=== PATIENT | female | born 1985 | race Caucasian/White ===

== ENCOUNTER → 2017-11-10 | Outpatient (REF) | payer BC | LOC: M LAB REF 12:37 | DX: N39.0 Urinary tract infection, site not specified (principal) | CPT/HCPCS: 87186 ==

== ENCOUNTER → 2019-03-12 | Outpatient (REF) | payer BC, MEDICAID, SELFPAY | LOC: M SFHCADAM 16:22 | PROVIDERS: ATTEND Physician Assistant Medical | DX: R19.7 Diarrhea, unspecified (principal) ==

== ENCOUNTER 2020-02-11 12:31 | Emergency (ER) | payer MEDICAID ==
[~2020-02-11] VITALS: Ht 157.5 cm; Wt 51.9 kg
[2020-02-11 12:31] VITALS: BP 103/67
[2020-02-11] MEDS ORDERED: CITA40TA4 (12:51)
[2020-02-11 15:25] LABS: BASO % 0.6 % (0.0-1.0); EOS # 0.1 10^3/uL (0.0-0.5); HEMATOCRIT 42.7 % (36.0-47.0); HEMOGLOBIN 14.4 g/dl (12.0-15.5); LYMPH # 1.7 10^3/uL (1.5-5.0); LYMPH % 23.8 % (24.0-44.0); MEAN CORPUSCULAR HEMOGLOBIN 31.5 pg (27.0-33.0); MEAN CORPUSCULAR HGB CONC 33.7 g/dl (32.0-36.5); MEAN CORPUSCULAR VOLUME 93.4 fl (80.0-96.0); MONO # 0.6 10^3/uL (0.0-0.8); MONO % 8.9 % (0.0-5.0); NEUTROPHILS # 4.5 10^3/uL (1.5-8.5); NEUTROPHILS % 65.4 % (36.0-66.0); PLATELET COUNT, AUTOMATED 237 10^3/uL (150-450); RED BLOOD COUNT 4.57 10^6/uL (4.00-5.40); WHITE BLOOD COUNT 6.9 10^3/uL (4.0-10.0)
[2020-02-11 15:49] LABS: ALBUMIN 4.2 GM/DL (3.2-5.2); ALT/SGPT 14 U/L (12-78); BILIRUBIN,DIRECT 0.2 MG/DL (0.0-0.2); BILIRUBIN,TOTAL 0.6 MG/DL (0.2-1.0); BLOOD UREA NITROGEN 12 MG/DL (7-18); CALCIUM LEVEL 9.1 MG/DL (8.5-10.1); CARBON DIOXIDE LEVEL 30 MEQ/L (21-32); CHLORIDE LEVEL 104 MEQ/L (98-107); CREATININE FOR GFR 0.67 MG/DL (0.55-1.30); GLOMERULAR FILTRATION RATE > 60.0 (>60); GLUCOSE, FASTING 84 MG/DL (70-100); LIPASE 127 U/L (73-393); POTASSIUM SERUM 4.2 MEQ/L (3.5-5.1); SODIUM LEVEL 139 MEQ/L (136-145); TOTAL PROTEIN 7.2 GM/DL (6.4-8.2)
== END 2020-02-11 16:16 | disposition home or self-care (01) ==
LOC: M ED 12:31
DX: R19.7 Diarrhea, unspecified (principal); R51.9 Headache, unspecified; R11.0 Nausea; Z87.19 Personal history of other diseases of the digestive system; Z79.899 Other long term (current) drug therapy
CPT/HCPCS: 36415; 80048; 80076; 83690; 85025; 99283; U0003

== ENCOUNTER → 2020-05-28 | Outpatient (CLI) | payer OTHER ==
[~2020-05-28] MED LIST: CITA40TA4
--- NOTE | 2020-05-28 19:00 | REP ---
INDICATION: L TOE INJURY. COMPARISON: None. TECHNIQUE: Four views of the left 5th toe are provided. FINDINGS: Four views of the left 5th toe demonstrate a transversely oriented acute nondisplaced fracture through the base of the proximal phalanx with associated soft tissue swelling.. Also noted is a previously placed screw plate fixation device in the 5th metatarsal. No other fracture is seen.. . IMPRESSION: Acute fracture nondisplaced proximal and of the proximal phalanx of the 5th toe. Old screw plate fixation device 5th metatarsal.. <Electronically signed by Koby Miner > 05/28/20 [id number]
== END ==
LOC: M RAD 18:11
PROVIDERS: ATTEND Physician Assistant Medical
DX: S90.932A Unspecified superficial injury of left great toe, initial encounter (principal); W18.30XA Fall on same level, unspecified, initial encounter; Y92.009 Unspecified place in unspecified non-institutional (private) residence as the place of occurrence of the external cause

== ENCOUNTER → 2020-10-01 | Outpatient (REF) | payer OTHER ==
[2020-10-01 17:09] LABS: APPEARANCE, URINE HAZY (CLEAR); BACTERIA, URINE AUTO 1+ (NEGATIVE); BILIRUBIN, URINE AUTO NEGATIVE (NEGATIVE); BLOOD, URINE BLOOD 1+ (NEGATIVE); COLOR, URINE YELLOW (YELLOW); GLUCOSE, URINE (UA) AUTO NEGATIVE (NEGATIVE); KETONE, URINE AUTO NEGATIVE (NEGATIVE); LEUKOCYTE ESTERASE, URINE AUTO 1+ (NEGATIVE); MUCUS, URINE SMALL (NEGATIVE); NITRITE, URINE AUTO POSITIVE (NEGATIVE); PROTEIN, URINE AUTO NEGATIVE (NEGATIVE); RBC, URINE AUTO 1 /HPF (0-3); SPECIFIC GRAVITY URINE AUTO 1.004 (1.002-1.035); SQUAMOUS EPITHELIAL CELL UR AU 2 /HPF (0-6); UROBILINOGEN, URINE AUTO 0.2 mg/dL (0.0-2.0); WBC, URINE AUTO 17 /HPF (0-3)
== END ==
LOC: M LAB REF 16:47
PROVIDERS: ATTEND Physician Assistant
DX: N39.0 Urinary tract infection, site not specified (principal)

== ENCOUNTER 2024-03-01 12:32 | Emergency (ER) | payer OTHER, SELFPAY ==
[~2024-03-01] VITALS: Ht 157.5 cm; Wt 50.4 kg
[~2024-03-01 12:32] MED LIST changes: -CITA40TA4; +CITA40TA7
[2024-03-01 13:14] LABS: BASO # 0.1 10^3/uL (0.0-0.2); BASO % 0.8 % (0.0-1.0); EOS # 0.1 10^3/uL (0.0-0.5); EOS % 0.8 % (0.0-3.0); HEMATOCRIT 42.6 % (36.0-47.0); LYMPH # 1.2 10^3/uL (1.5-5.0); LYMPH % 19.5 % (24.0-44.0); MEAN CORPUSCULAR HGB CONC 35.2 g/dl (32.0-36.5); MEAN CORPUSCULAR VOLUME 93.8 fl (80.0-96.0); MONO # 0.5 10^3/uL (0.0-0.8); MONO % 7.5 % (2.0-8.0); NEUTROPHILS # 4.3 10^3/uL (1.5-8.5); NEUTROPHILS % 71.2 % (36.0-66.0); PLATELET COUNT, AUTOMATED 245 10^3/uL (150-450); RED BLOOD COUNT 4.54 10^6/uL (4.00-5.40)
[2024-03-01 13:43] LABS: CPK CREATINE PHOSPHOKINASE 69 U/L (34-145)
[2024-03-01 13:44] LABS: ALBUMIN 4.4 G/DL (3.2-5.2); ALKALINE PHOSPHATASE 70 U/L (35-104); ALT/SGPT 13 U/L (7.0-40); AST/SGOT 10 U/L (<34); BILIRUBIN,DIRECT 0.2 MG/DL (<0.4); BILIRUBIN,TOTAL 0.6 MG/DL (0.3-1.2); BLOOD UREA NITROGEN 10 MG/DL (9-23); CALCIUM LEVEL 9.1 MG/DL (8.5-10.1); CARBON DIOXIDE LEVEL 26 MMOL/L (20-31); CHLORIDE LEVEL 106 MMOL/L (98-107); CK-MB VALUE MASS < 1.0 NG/ML (<3.6); CREATININE FOR GFR 0.72 MG/DL (0.55-1.30); GLOMERULAR FILTRATION RATE > 60.0 (>60); GLUCOSE, FASTING 106 MG/DL (60-100); MB/CK RELATIVE INDEX 1.44 (< OR =4); SODIUM LEVEL 140 MMOL/L (136-145); TOTAL PROTEIN 7.2 G/DL (5.7-8.2)
[2024-03-01 13:46] LABS: KETONE, URINE AUTO RFX NEGATIVE (NEGATIVE); LEUKOCYTE ESTERASE UR AUTO RFX NEGATIVE (NEGATIVE); MUCUS, URINE RFX SMALL (NEGATIVE); NITRITE, URINE AUTO RFX NEGATIVE (NEGATIVE); RBC, URINE AUTO RFX 2 /HPF (0-3); SQUAM EPITHELIAL CELL UR AURFX 2 /HPF (0-6); WBC, URINE AUTO RFX 0 /HPF (0-3)
[2024-03-01 13:48] LABS: THYROID STIMULATING HORMONE 1.693 uIU/ML (0.55-4.78)
[2024-03-01 14:07] LABS: HCG, SERUM QUALITATIVE NEGATIVE (NEGATIVE)
[2024-03-01 14:55] LABS: MAGNESIUM LEVEL 1.9 MG/DL (1.8-2.4)
[2024-03-01] MEDS: KETOROLAC 30 MG/ML 1ML VIAL IV ONE (15:09)
[2024-03-01 15:42] LABS: CK-MB VALUE MASS < 1.0 NG/ML (<3.6)
[2024-03-01 15:44] LABS: CPK CREATINE PHOSPHOKINASE 73 U/L (34-145); MB/CK RELATIVE INDEX 1.36 (< OR =4)
[2024-03-01] MEDS ORDERED: NAPR-885 PO (16:25)
[2024-03-01] MEDS ORDERED: METH-1164 PO (16:25)
[2024-03-01 16:30] VITALS: BP 104/59; TEMP 98.2; O2SAT 98
== END 2024-03-01 16:41 | disposition home or self-care (01) ==
LOC: M ED 12:32
DX: M54.50 Low back pain, unspecified (principal); R55 Syncope and collapse; M62.830 Muscle spasm of back; R00.0 Tachycardia, unspecified; I45.10 Unspecified right bundle-branch block; F41.9 Anxiety disorder, unspecified; Z79.899 Other long term (current) drug therapy
CPT/HCPCS: 80048; 80076; 81001; 82550; 82553; 83735; 84443; 84484; 84703; 85025; 93005; 93041; 94760; 96374; 99285; J1885

== ENCOUNTER 2024-04-26 10:10 | Emergency (ER) | payer MEDICAID, OTHER, SELFPAY ==
[~2024-04-26] VITALS: Ht 157.5 cm; Wt 50.8 kg
[~2024-04-26 10:10] MED LIST changes: +METH-1164 PO; +NAPR-885 PO
[2024-04-26] MEDS ORDERED: IBUP200T46 PO (10:17)
[2024-04-26] MEDS ORDERED: ACET-683 PO (10:17)
[2024-04-26] MEDS: ACETAMINOPHEN 500 MG TAB PO ONE (12:38)
[2024-04-26 13:01] VITALS: BP 114/71; TEMP 98.6; O2SAT 99
== END 2024-04-26 13:07 | disposition home or self-care (01) ==
LOC: M ED 10:10
DX: B34.2 Coronavirus infection, unspecified (principal); Z90.89 Acquired absence of other organs; Z79.1 Long term (current) use of non-steroidal anti-inflammatories (NSAID)

== ENCOUNTER → 2024-08-24 | Outpatient (CLI) | payer MEDICAID, OTHER ==
[~2024-08-24] MED LIST changes: +ACET-683 PO; +IBUP200T46 PO
== END ==
LOC: M LAB 11:45
PROVIDERS: ATTEND Physician Assistant Medical
DX: R53.83 Other fatigue (principal); M79.7 Fibromyalgia